=== PATIENT | female | born 1985 | race African-American/Black ===

== ENCOUNTER 2018-07-05 08:29 | Emergency (ER) | payer MEDICAID, MEDICARE ==
[~2018-07-05] VITALS: Ht 172.7 cm; Wt 148.0 kg
[2018-07-05] MEDS ORDERED: KETOROLAC 30MG/ML VIAL IV STA (10:26)
[2018-07-05 11:07] LABS: CLARITY URINE CLOUDY (CLEAR); COLOR URINE YELLOW (YELLOW); KETONES URINE NEGATIVE (NEGATIVE); LEUKOCYTE ESTERASE URINE NEGATIVE (NEGATIVE); NITRITE URINE NEGATIVE (NEGATIVE); OCCULT BLOOD URINE NEGATIVE (NEGATIVE); PH URINE 6.5 (4.5-8.0); PROTEIN URINE NEGATIVE (NEGATIVE); SPECIFIC GRAVITY URINE 1.034 (1.005-1.030)
[2018-07-05 11:37] LABS: BASOPHILS % 1.3 % (0.0-2.0); EOSINOPHILS % 8.9 % (0.0-5.0); HEMATOCRIT. 34.5 % (36.0-48.0); HEMOGLOBIN. 11.6 g/dL (12.0-16.0); LYMPHOCYTES % 25.4 % (20.0-50.0); MEAN CORPUSCULAR HEMOGLOBIN 28.2 pg (28.0-32.0); MEAN CORPUSCULAR VOLUME 83.9 fL (81.0-99.0); MEAN PLATELET VOLUME 8.8 fl (7.4-10.4); MONOCYTES % 9.6 % (2.0-8.0); NEUTROPHILS % 54.8 % (40.0-76.0); PLATELET 238 x1000/uL (130-400); RED BLOOD CELL COUNT 4.11 mill/uL (4.2-5.4); RED CELL DISTRIBUTION WIDTH 16.8 % (11.6-14.6)
[2018-07-05 11:38] LABS: CHLORIDE 106 mEq/L (98-107)
[2018-07-05 11:39] LABS: PROTHROMBIN TIME 10.1 sec (9.1-11.1)
[2018-07-05 11:44] LABS: HCG SCREEN NEGATIVE
[2018-07-05 14:00] VITALS: BP 132/97
== END 2018-07-05 14:43 | disposition home or self-care (01) ==
LOC: ER 09:41
DX: D25.9 Leiomyoma of uterus, unspecified (principal); N83.201 Unspecified ovarian cyst, right side; R50.9 Fever, unspecified
CPT/HCPCS: 36415; 74176; 76830; 76856; 80053; 81003; 83690; 84703; 85025; 85610; 96374; 99284; J1885